=== PATIENT | female | born 1985 | race Caucasian/White ===

== ENCOUNTER 2019-03-16 07:05 | Emergency (ER) | payer OTHER ==
[~2019-03-16] VITALS: Ht 162.6 cm; Wt 89.0 kg
[2019-03-16 07:12] VITALS: BP 129/83
[2019-03-16] MEDS ORDERED: PREN-380 PO (07:17)
--- NOTE | 2019-03-16 07:31 | NUR ---
PT PRESENTS TO ED WITH C/O LIGHT VAGINAL BLEEDING, VAGINAL PAIN, LOW BACK PAIN, AND PELVIC PAIN X 1 WEEK; PROGRESSIVELY GETTING WORSE LAST NIGHT. USED 3 PADS TODAY. DENIES NAUSEA, VOMITING,FEVER/CHILLS. PT STS APPROX 6 WEEKS . LMP 01/31/19. . VSS. ERMD TO EVALUATE PT.
--- NOTE | 2019-03-16 07:34 | NUR ---
DR VASQUEZ AT BEDSIDE EVALUATING PT.
--- NOTE | 2019-03-16 07:42 | NUR ---
ENCOURAGED PT TO PROVIDE UA; UNABLE TO URINATE AT THIS TIME.
[2019-03-16 07:58] LABS: BASOPHILS % (AUTO) 0.6 % (0.0-2.0); EOSINOPHILS # (AUTO) 0.1 K/uL (0-0.4); EOSINOPHILS % (AUTO) 1.9 % (0.0-4.0); HEMATOCRIT 33.3 % (36-48); HEMOGLOBIN 9.8 g/dL (12.0-16.0); LYMPHOCYTES # (AUTO) 1.2 K/uL (2.5-16.5); LYMPHOCYTES % (AUTO) 15.6 % (20.5-51.1); MEAN CORPUSCULAR HEMOGLOBIN 17 pg (27-31); MEAN CORPUSCULAR HGB CONC 29 g/dL (33-37); MEAN CORPUSCULAR VOLUME 58.1 fL (80-94); MONOCYTES # (AUTO) 0.6 K/uL (0.8-1.0); MONOCYTES % (AUTO) 7.5 % (1.7-9.3); NEUTROPHILS # (AUTO) 5.5 K/uL (1.8-7.7); NEUTROPHILS % (AUTO) 74.4 % (42.2-75.2); PLATELET COUNT (AUTO) 358 K/uL (140-450); RED BLOOD CELL COUNT(AUTO) 5.74 MIL/uL (4.20-5.40); WHITE BLOOD COUNT (AUTO) 7.4 K/uL (4.8-10.8)
--- NOTE | 2019-03-16 08:35 | NUR ---
Ultrasound at bedside.
--- NOTE | 2019-03-16 08:38 | NUR ---
UA SENT TO LAB.
[2019-03-16 08:50] LABS: APPEARANCE,URINE CLOUDY (CLEAR); BILIRUBIN,URINE NEGATIVE (NEGATIVE); BLOOD, URINE 3+ (NEGATIVE); COLOR,URINE RED (YELLOW); LEUKOCYTE ESTERASE ,URINE TRACE (NEGATIVE); NITRITE, URINE NEGATIVE (NEGATIVE); UGLUCOSE NEGATIVE (NEGATIVE)
[2019-03-16 09:05] LABS: RBC,URINE TOO NUMEROUS TO COUN /HPF (0-5); WBC,URINE 0-5 /HPF (0-5)
--- NOTE | 2019-03-16 09:25 | NUR ---
DR VASQUEZ RE-EVALUATING PT AT BEDSIDE.
[2019-03-16] MEDS ORDERED: KETOROLAC 60 MG/2 ML VIAL IM ONE (09:35)
--- NOTE | 2019-03-16 10:04 | NUR ---
Patient discharged with v/s stable. Written and verbal after care instructions given and explained. Patient alert, oriented and verbalized understanding of instructions. Wheel Chair Assisted to car. All questions addressed prior to discharge. ID band removed. Patient advised to follow up with PMD. Rx of Naprosyn given. Patient educated on indication of medication including possible reaction and side effects. Opportunity to ask questions provided and answered.
[2019-03-16 10:05] VITALS: BP 118/72
== END 2019-03-16 10:04 | disposition home or self-care (01) ==
LOC: MED 07:05
DX: N93.9 Abnormal uterine and vaginal bleeding, unspecified (principal); M54.5 Low back pain; R53.1 Weakness; Z79.899 Other long term (current) drug therapy
CPT/HCPCS: 36415; 76817; 81001; 84702; 85025; 86900; 86901; 96372; 99284; J1885; Q0092

== ENCOUNTER 2019-04-01 17:49 | Emergency (ER) | payer OTHER ==
[~2019-04-01] VITALS: Ht 162.6 cm; Wt 86.2 kg
[~2019-04-01 17:49] MED LIST: PREN-380 PO
[2019-04-01 18:04] VITALS: BP 138/88
[2019-04-01 18:25] LABS: BASOPHILS # (AUTO) 0.1 K/uL (0.00-0.22); BASOPHILS % (AUTO) 0.9 % (0.0-2.0); EOSINOPHILS # (AUTO) 0.2 K/uL (0-0.4); EOSINOPHILS % (AUTO) 2.7 % (0.0-4.0); HEMATOCRIT 32.9 % (36-48); HEMOGLOBIN 9.9 g/dL (12.0-16.0); LYMPHOCYTES # (AUTO) 2.1 K/uL (2.5-16.5); LYMPHOCYTES % (AUTO) 26.4 % (20.5-51.1); MEAN CORPUSCULAR HEMOGLOBIN 18 pg (27-31); MEAN CORPUSCULAR HGB CONC 30 g/dL (33-37); MEAN CORPUSCULAR VOLUME 60.4 fL (80-94); MONOCYTES # (AUTO) 0.7 K/uL (0.8-1.0); MONOCYTES % (AUTO) 9.2 % (1.7-9.3); NEUTROPHILS # (AUTO) 4.8 K/uL (1.8-7.7); NEUTROPHILS % (AUTO) 60.8 % (42.2-75.2); PLATELET COUNT (AUTO) 408 K/uL (140-450); RED BLOOD CELL COUNT(AUTO) 5.44 MIL/uL (4.20-5.40); RED CELL DISTRIBUTION WIDTH 23.4 % (11.6-13.7); WHITE BLOOD COUNT (AUTO) 7.9 K/uL (4.8-10.8)
[2019-04-01 18:41] LABS: APPEARANCE,URINE CLOUDY (CLEAR); BILIRUBIN,URINE NEGATIVE (NEGATIVE); BLOOD, URINE 3+ (NEGATIVE); COLOR,URINE AMBER (YELLOW); LEUKOCYTE ESTERASE ,URINE TRACE (NEGATIVE); NITRITE, URINE NEGATIVE (NEGATIVE); UGLUCOSE NEGATIVE (NEGATIVE)
[2019-04-01 18:45] LABS: RBC,URINE TOO NUMEROUS TO COUN /HPF (0-5)
[2019-04-01 19:11] VITALS: BP 130/79
== END 2019-04-01 20:25 | disposition home or self-care (01) ==
LOC: MED 17:49
DX: O46.90 Antepartum hemorrhage, unspecified, unspecified trimester (principal); Z3A.00 Weeks of gestation of pregnancy not specified; Z79.899 Other long term (current) drug therapy
CPT/HCPCS: 36415; 76817; 81001; 81025; 84702; 85025; 87086; 99284; Q0092

== ENCOUNTER 2019-04-06 06:14 | Emergency (ER) | payer OTHER ==
[~2019-04-06] VITALS: Ht 162.6 cm; Wt 89.0 kg
[2019-04-06 06:18] VITALS: BP 118/80
--- NOTE | 2019-04-06 06:26 | NUR ---
PT AMBULATED TO BED 12 WITH STEADY GAIT. IN RR PROVIDING URINE SAMPLE.
--- NOTE | 2019-04-06 06:28 | NUR ---
33/F PRESENTED TO ED WITH C/O 6/10 LEFT SIDE PELVIC PAIN X 1 DAY DESCRIBED THROBBING AND SHARP. STATES PAIN HAS BECOME CONSTANT THROUGH LAST NIGHT. PT STATES SHE IS 7-8 WEEKS . PT STATES SHE HAS BEEN SPOTTING THROUGHOUT . WAS TOLD TO RETURN TO ER IF HAVING ANY PAIN TO RULE OUT ECTOPIC . PAST MED HX RHEUMATOID ARTHRITIS, FIBROMYALGIA. RX VITAMINS, IRON SUPPLEMENTS. DENIES ALLERGIES. VSS. WILL CONTINUE TO MONITOR.
--- NOTE | 2019-04-06 07:00 | NUR ---
PT AMBULATED TO RESTROOM. STEADY GAIT. NO SIGNS OF DISTRESS. WILL CONTINUE TO MONITOR.
--- NOTE | 2019-04-06 07:18 | NUR ---
REPORT GIVEN TO CHARGE NURSE VERNON. PT IN STABLE CONDITION.
--- NOTE | 2019-04-06 07:41 | NUR ---
LAB AT BEDSIDE
[2019-04-06 08:03] LABS: HEMATOCRIT 34.4 % (36-48); HEMOGLOBIN 10.2 g/dL (12.0-16.0); MEAN CORPUSCULAR HEMOGLOBIN 18 pg (27-31); MEAN CORPUSCULAR HGB CONC 30 g/dL (33-37); MEAN CORPUSCULAR VOLUME 61.9 fL (80-94); PLATELET COUNT (AUTO) 354 K/uL (140-450); RED BLOOD CELL COUNT(AUTO) 5.56 MIL/uL (4.20-5.40); RED CELL DISTRIBUTION WIDTH 25.1 % (11.6-13.7); WHITE BLOOD COUNT (AUTO) 6.2 K/uL (4.8-10.8)
[2019-04-06 08:39] LABS: EOSINOPHILS % (MANUAL) 2 % (0-4); LYMPHOCYTES % (MANUAL) 20 % (20-46); MONOCYTES % (MANUAL) 8 % (5-12)
--- NOTE | 2019-04-06 08:59 | NUR ---
Patient appears to be resting in bed. Vital Signs within normal limits. Respirations even and unlabored.
--- NOTE | 2019-04-06 09:10 | NUR ---
dr lópez at bedside re-evaluating
[2019-04-06 09:14] VITALS: BP 115/68
--- NOTE | 2019-04-06 09:14 | NUR ---
Patient discharged with v/s stable. Written and verbal after care instructions given and explained regarding threatened miscarriage. Patient verbalized understanding. Ambulatory with steady gait. All questions addressed prior to discharge. Advised to follow up with dr garcia today.
== END 2019-04-06 06:26 | disposition home or self-care (01) ==
LOC: MED 06:14
DX: O20.9 Hemorrhage in early pregnancy, unspecified (principal); O26.891 Other specified pregnancy related conditions, first trimester; M06.9 Rheumatoid arthritis, unspecified; M79.7 Fibromyalgia; Z79.899 Other long term (current) drug therapy; Z3A.01 Less than 8 weeks gestation of pregnancy
CPT/HCPCS: 36415; 81025; 84702; 85025; 99283

== ENCOUNTER 2019-04-06 11:20 | Outpatient (CLI) | payer OTHER | END 2019-04-06 20:37 | disposition home or self-care (01) | LOC: MUS 11:20 | PROVIDERS: ATTEND Obstetrics & Gynecology | DX: O34.80 Maternal care for other abnormalities of pelvic organs, unspecified trimester (principal); O00.90 Unspecified ectopic pregnancy without intrauterine pregnancy; N83.202 Unspecified ovarian cyst, left side; N83.201 Unspecified ovarian cyst, right side | CPT/HCPCS: 76801; 76817 ==